=== PATIENT | female | born 1990 | race Caucasian/White ===

== ENCOUNTER 2016-09-25 09:29 | Inpatient (IN) | payer OTHER ==
[~2016-09-25] VITALS: Ht 149.9 cm; Wt 52.4 kg
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
[2016-09-25 09:36] VITALS: BP 117/73; PULSE 67; RESP 16; TEMP 97.8; O2SAT 98
[2016-09-25] MEDS ORDERED: CLON0.5T PO (09:40)
[2016-09-25 10:23] LABS: AMPHETAMINE, URINE NEG (NEG); BARBITURATES, URINE NEG (NEG); COCAINE, URINE NEG (NEG)
[2016-09-25 10:27] LABS: AUTOMATED NEUTROPHIL # 4.7 TH/MM3 (1.8-7.7); BASOPHIL % 0.4 % (0.0-2.0); EOSINOPHIL # 0.1 TH/MM3 (0-0.4); EOSINOPHIL % 1.5 % (0.0-4.0); HEMATOCRIT 34.1 % (35.0-46.0); HEMO FLAGS DIFF FINAL; LYMPH % 33.7 % (9.0-44.0); LYMPHOCYTE # 2.7 TH/MM3 (1.0-4.8); MEAN CELL VOLUME 81.7 FL (80.0-100.0); MEAN CORPUSCULAR HEMOGLOBIN 26.4 PG (27.0-34.0); MEAN CORPUSCULAR HGB CONC 32.4 % (32.0-36.0); MONO % 6.8 % (0.0-8.0); NEUT % 57.6 % (16.0-70.0); PLATELET COUNT 248 TH/MM3 (150-450); RED BLOOD COUNT 4.18 MIL/MM3 (4.00-5.30); RED CELL DISTRIBUTION WIDTH 13.8 % (11.6-17.2); WHITE BLOOD COUNT 8.1 TH/MM3 (4.0-11.0)
[2016-09-25 10:38] LABS: ALT (GPT) 20 U/L (10-53); ANION GAP 6 MEQ/L (5-15); AST (GOT) 15 U/L (15-37); BICARBONATE 27.2 MEQ/L (21.0-32.0); BLOOD UREA NITROGEN 13 MG/DL (7-18); CHLORIDE 107 MEQ/L (98-107); GLOMERULAR FILTRATION RATE 116 ML/MIN (>89); POTASSIUM 3.9 MEQ/L (3.5-5.1); SODIUM (NA) 140 MEQ/L (136-145)
[2016-09-25 10:40] LABS: ALKALINE PHOSPHATASE 69 U/L (45-117); TOTAL BILIRUBIN ADULT 0.5 MG/DL (0.2-1.0)
[2016-09-25 12:00] VITALS: BP 110/77; PULSE 76; RESP 17; TEMP 97.8; O2SAT 99
[2016-09-25 14:08] VITALS: BP 102/60; PULSE 61; RESP 18; O2SAT 100
--- NOTE | 2016-09-25 17:57 | PD ---
History of Present Illness Chief Complaint: Psychiatric Symptoms Time Seen by Provider: 17:15 Travel History International Travel<30 Days: No Contact w/Intl Traveler<30days: No Known affected area: No Legal Status Legal Status: Calzada Act Calzada Act Signed By: Von Calzada Act Comment: BA signed by: YAZAN STEEN Badge#[id number], Case#[id number] History of Present Illness: History of Present Illness HPI 26-year-old female with a reported history of PTSD and a chart history of adjustment disorder who came to the emergency room brought by the EMS after she was found unresponsive trying to choke herself with a rope . As per EMS report they had to forced entry into her room since the door was locked. She was initially unresponsive but with some sternal rub and untying the belt around her neck she started to breathe. Patient reports that she was involved in an argument with her and that after he left " my depression and anxiety just hit me". She denies that this was a planned suicide attempt but rather an impulsive action. The patient was seen in [facility] on August 26, 2016 also under a BA after she attempted to strangle herself. She was released after she was evaluated. That visit appears under " KASI" as her first name is misspelled. Seen in J pod. She is alert and oriented, calm and cooperative. Patient 's speech is clear and logical. She denies any hallucinations, no delusions and no paranoia. Mood is mildly depressed. Affect is variable. She reports that since her visit in August she has been in counseling and has begun medications prescribed by her PCP. She reports poor compliance with prescribed antidepressant ' I forget to take it for several days". Reports poor sleep, fair appetite and appropriate level of energy. Deneis use of substances although positive toxicology for cannabinoids. PFSH Past Medical History Anxiety: Yes Depression: Yes Psychiatric: Yes Tetanus Vaccination: > 5 Years Influenza Vaccination: No ?: Not LMP: 09/03/2016 : 3 Para: 3 Past Surgical History Surgical History: No Previous Surgery Psychiatric History Psychiatric History Hx Psychiatric Treatment: Pt was placed under a BA after a suicide attempt in August 2016 History of Inpatient Treatment: No Guns or firearms in home: No Social History . lives with and 2 children ages 2 years and 4 years. Currently on leave from work. Has worked as a unit aide x 2 years. Hx Alcohol Use: No (PT DENIES) Hx Tobacco Use: No (PT DENIES ) Hx Substance Use: No Substance Use Type: Marijuana Hx of Substance Use Treatment: No Family Psychiatric History Mother with possible depression. Allergies-Medications (Allergen,Severity, Reaction): Coded Allergies: Amoxicillin (Verified Allergy, Unknown, hives, 09/25/16) Erythromycin (Verified Allergy, Unknown, rash, 09/25/16) Penicillin (Verified Allergy, Unknown, hives, 09/25/16) Reported Meds & Prescriptions Reported Meds & Active Scripts Active Reported Clonazepam 0.5 Mg Tab 0.5 Mg PO BID Exam Alert: Yes [place]: Person (ox4) Mood: Calm Affect: Appropriate Speech: Clear, Logical Eye Contact: Normal Memory Intact: Comment (No impairmetn) Hallucinations: Other (negative) Delusions: No Suicidal: Ideation (deneis at present) Homicidal: Ideation (deneis at present) Insight/Judgement Poor. Not impaired MDM Medical Decision Making Medical Record Reviewed: Yes Assessment/Plan 26-year-old female with a reported history of PTSD and a chart history of adjustment disorder who came to the emergency room brought by the EMS after she was found unresponsive trying to choke herself with a rope . As per EMS report they had to forced entry into her room since the door was locked. She was initially unresponsive but with some sternal rub and untying the belt around her neck she started to breathe. This is the second reported she has made in the past month. She has been inconsistent with her treatment. At this time inpatient treatment is recommended for further evaluation, to maintain safety and to adjust current medications. Orders Complete Blood Count With Diff (09/25/16 09:36) Comprehensive Metabolic Panel (09/25/16 09:36) Ed Urine Pregnancytest Poc (09/25/16 09:36) Psych Screen (09/25/16 09:36) Drug Screen, Random Urine (09/25/16 09:36) Diet Regular Basic (09/25/16 Dinner) Results Vital Signs Date Time Temp Pulse Resp B/P Pulse Ox O2 Delivery O2 Flow Rate FiO2 09/25/16 14:08 61 18 102/60 100 Room Air 09/25/16 12:00 97.8 76 17 110/77 99 Room Air 09/25/16 09:38 67 16 09/25/16 09:36 97.8 67 16 117/73 98 Laboratory Tests Test 09/25/16 09/25/16 09:30 09:45 White Blood Count 8.1 Red Blood Count 4.18 Hemoglobin 11.0 Hematocrit 34.1 Mean Corpuscular Volume 81.7 Mean Corpuscular Hemoglobin 26.4 Mean Corpuscular Hemoglobin 32.4 Concent Red Cell Distribution Width 13.8 Platelet Count 248 Mean Platelet Volume 8.2 Neutrophils (%) (Auto) 57.6 Lymphocytes (%) (Auto) 33.7 Monocytes (%) (Auto) 6.8 Eosinophils (%) (Auto) 1.5 Basophils (%) (Auto) 0.4 Neutrophils # (Auto) 4.7 Lymphocytes # (Auto) 2.7 Monocytes # (Auto) 0.6 Eosinophils # (Auto) 0.1 Basophils # (Auto) 0.0 CBC Comment DIFF FINAL Differential Comment Sodium Level 140 Potassium Level 3.9 Chloride Level 107 Carbon Dioxide Level 27.2 Anion Gap 6 Blood Urea Nitrogen 13 Creatinine 0.62 Estimat Glomerular Filtration 116 Rate Random Glucose 100 Calcium Level 8.7 Total Bilirubin 0.5 Aspartate Amino Transf 15 (AST/SGOT) Alanine Aminotransferase 20 (ALT/SGPT) Alkaline Phosphatase 69 Total Protein 7.4 Albumin 3.7 Urine Opiates Screen NEG Urine Barbiturates Screen NEG Urine Amphetamines Screen NEG Urine Benzodiazepines Screen NEG Urine Cocaine Screen NEG Urine Cannabinoids Screen POS Diagnosis Primary Impression: Adjustment disorder Admitting Information Admitting Physician Requests: Admit Problem Qualifiers Primary Impression: Adjustment disorder Qualified Code: F43.21 - Adjustment disorder with depressed mood Bettina Mar Sep 25, 2016 17:57
[2016-09-25] MEDS ORDERED: MAGNESIUM HYDROXIDE SUSP 30 ML CUP PO PRN (18:00)
[2016-09-25] MEDS ORDERED: ACETAMINOPHEN 325 MG TAB PO PRN (18:00)
[2016-09-25] MEDS ORDERED: ALUMINUM/MAGNESIUM/SIMETH 30 ML CUP PO PRN (18:00)
[2016-09-25 18:27] VITALS: BP 102/60; PULSE 61; RESP 18; O2SAT 100
[2016-09-25 22:38] VITALS: BP 109/55; PULSE 76; RESP 18; TEMP 98; O2SAT 99
[2016-09-26 06:06] VITALS: BP 107/59; PULSE 110; RESP 18; TEMP 97.9; O2SAT 100
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
[2016-09-26 11:14] LABS: ANION GAP 9 MEQ/L (5-15); BICARBONATE 26.3 MEQ/L (21.0-32.0); BLOOD UREA NITROGEN 10 MG/DL (7-18); CHLORIDE 104 MEQ/L (98-107); GLOMERULAR FILTRATION RATE 103 ML/MIN (>89); POTASSIUM 4.3 MEQ/L (3.5-5.1); SODIUM (NA) 139 MEQ/L (136-145)
[2016-09-26 11:21] LABS: HDL CHOLESTEROL 49.3 MG/DL (40.0-60.0); LDL CHOLESTEROL 115 MG/DL (0-99)
[2016-09-26 11:46] LABS: HEMOGLOBIN A1a 1.5 %; HEMOGLOBIN A1b 1.6 %; HEMOGLOBIN Ao 84.8 %; HEMOGLOBIN P3 3.8 %
[2016-09-26] MEDS: clonazePAM 0.5 MG TAB PO SCH ×2 (13:33→21:04)
[2016-09-26 17:58] VITALS: BP 101/66; PULSE 82; RESP 17; TEMP 98.3; O2SAT 100
[2016-09-27 04:59] VITALS: BP 102/66; PULSE 86; RESP 16; TEMP 97.9; O2SAT 97
[2016-09-27] MEDS: clonazePAM 0.5 MG TAB PO SCH (08:26)
[2016-09-27 10:14] LABS: AUTOMATED NEUTROPHIL # 7.2 TH/MM3 (1.8-7.7); BASOPHIL % 0.3 % (0.0-2.0); EOSINOPHIL % 0.4 % (0.0-4.0); HEMATOCRIT 40.1 % (35.0-46.0); HEMO FLAGS DIFF FINAL; LYMPH % 28.7 % (9.0-44.0); LYMPHOCYTE # 3.2 TH/MM3 (1.0-4.8); MEAN CELL VOLUME 82.4 FL (80.0-100.0); MEAN CORPUSCULAR HEMOGLOBIN 26.3 PG (27.0-34.0); MEAN CORPUSCULAR HGB CONC 31.9 % (32.0-36.0); MONO % 5.4 % (0.0-8.0); NEUT % 65.2 % (16.0-70.0); PLATELET COUNT 297 TH/MM3 (150-450); RED BLOOD COUNT 4.87 MIL/MM3 (4.00-5.30); RED CELL DISTRIBUTION WIDTH 13.9 % (11.6-17.2)
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
== END 2016-09-27 14:26 | disposition home or self-care (01) | DRG 882 ==
LOC: NEPE 09:29 → NEDA 18:01 → H270 21:57 → H260 09-26 11:25
PROVIDERS: ADMIT Psychiatry & Neurology Psychiatry; ATTEND Psychiatry & Neurology Psychiatry
DX: F43.25 Adjustment disorder with mixed disturbance of emotions and conduct (principal); F43.10 Post-traumatic stress disorder, unspecified
CPT/HCPCS: 80048; 80053; 80061; 80307; 83036; 84703; 85025

== ENCOUNTER 2016-12-27 20:04 | Emergency (ER) | payer MEDICAID, OTHER ==
[~2016-12-27] VITALS: Ht 149.9 cm; Wt 55.0 kg
[~2016-12-27 20:04] MED LIST: CLON0.5T PO
[2016-12-27 20:13] VITALS: BP 120/75; PULSE 99; RESP 17; TEMP 98.3; O2SAT 100
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
[2016-12-27 20:47] LABS: AUTOMATED NEUTROPHIL # 11.4 TH/MM3 (1.8-7.7); BASOPHIL % 0.2 % (0.0-2.0); EOSINOPHIL # 0.1 TH/MM3 (0-0.4); EOSINOPHIL % 0.7 % (0.0-4.0); HEMATOCRIT 29.5 % (35.0-46.0); HEMO FLAGS DIFF FINAL; LYMPHOCYTE # 3.1 TH/MM3 (1.0-4.8); MEAN CELL VOLUME 82.4 FL (80.0-100.0); MEAN CORPUSCULAR HEMOGLOBIN 27.1 PG (27.0-34.0); MEAN CORPUSCULAR HGB CONC 32.9 % (32.0-36.0); MONO % 5.6 % (0.0-8.0); NEUT % 73.5 % (16.0-70.0); PLATELET COUNT 265 TH/MM3 (150-450); RED BLOOD COUNT 3.58 MIL/MM3 (4.00-5.30); RED CELL DISTRIBUTION WIDTH 13.2 % (11.6-17.2); WHITE BLOOD COUNT 15.5 TH/MM3 (4.0-11.0)
[2016-12-27 21:04] LABS: ANION GAP 7 MEQ/L (5-15); BICARBONATE 23.8 MEQ/L (21.0-32.0); BLOOD UREA NITROGEN 7 MG/DL (7-18); CHLORIDE 106 MEQ/L (98-107); GLOMERULAR FILTRATION RATE 199 ML/MIN (>89); POTASSIUM 3.7 MEQ/L (3.5-5.1); SODIUM (NA) 137 MEQ/L (136-145)
[2016-12-27 21:21] LABS: ACETAMINOPHEN LESS THAN 2.0 MCG/ML (10.0-30.0); BETA HCG QUANT 51379 MIU/ML (0-5)
[2016-12-27 21:28] LABS: ALCOHOL LESS THAN 3 MG/DL (0-5)
[2016-12-27 22:21] LABS: BACTERIA, URINE RARE /hpf; BLOOD, URINE NEG (NEG); COMMENT (UR) CULT NOT INDICATED; CULTURE IF INDICATED CULT NOT INDICATED; GLUCOSE,URINE NEG (NEG); KETONE, URINE NEG (NEG); MUCUS URINE FEW /lpf (OCC); NITRITE,URINE NEG (NEG); SQUAMOUS EPITHELIAL CELL URINE 4 /hpf (0-5); URINE COLOR YELLOW (YELLW/STRAW)
[2016-12-28 03:17] VITALS: BP 122/54; PULSE 92; RESP 18; TEMP 98.6; O2SAT 99
[2016-12-28 05:21] VITALS: BP 114/55; PULSE 101; RESP 16; O2SAT 99
[2016-12-28] MEDS ORDERED: ACETAMINOPHEN 325 MG TAB PO ONE (09:00)
[2016-12-28 12:02] VITALS: BP 100/57; PULSE 93; RESP 18; TEMP 98.6; O2SAT 98
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
--- NOTE | 2016-12-28 13:29 | PD ---
Physical Exam Time Seen by Provider: 13:[address] Ayala has evaluated the patient, lifted Calzada act and cleared the patient for discharge. Data Data Last Documented VS Vital Signs Date Time Temp Pulse Resp B/P (MAP) Pulse Ox O2 Delivery O2 Flow Rate FiO2 12/28/16 12:02 98.6 93 18 100/57 (71) 98 12/28/16 05:21 Room Air Orders Orders Complete Blood Count With Diff (12/27/16 20:15) Basic Metabolic Panel (Bmp) (12/27/16 20:15) Urinalysis - C+S If Indicated (12/27/16 20:15) Psych Screen (12/27/16 20:15) Drug Screen, Random Urine (12/27/16 20:15) Alcohol (Ethanol) (12/27/16 20:15) Salicylates (Aspirin) (12/27/16 20:15) Tylenol (Acetaminophen) (12/27/16 20:15) Beta Hcg (Quant/Titer) (12/27/16 20:15) Diet Regular Basic (12/28/16 Breakfast) Acetaminophen (Tylenol) (12/28/16 09:00) Diet Regular Basic (12/28/16 Lunch) Labs Laboratory Tests Test 12/27/16 20:20 12/27/16 21:55 White Blood Count 15.5 TH/MM3 Red Blood Count 3.58 MIL/MM3 Hemoglobin 9.7 GM/DL Hematocrit 29.5 % Mean Corpuscular Volume 82.4 FL Mean Corpuscular Hemoglobin 27.1 PG Mean Corpuscular Hemoglobin Concent 32.9 % Red Cell Distribution Width 13.2 % Platelet Count 265 TH/MM3 Mean Platelet Volume 8.1 FL Neutrophils (%) (Auto) 73.5 % Lymphocytes (%) (Auto) 20.0 % Monocytes (%) (Auto) 5.6 % Eosinophils (%) (Auto) 0.7 % Basophils (%) (Auto) 0.2 % Neutrophils # (Auto) 11.4 TH/MM3 Lymphocytes # (Auto) 3.1 TH/MM3 Monocytes # (Auto) 0.9 TH/MM3 Eosinophils # (Auto) 0.1 TH/MM3 Basophils # (Auto) 0.0 TH/MM3 CBC Comment DIFF FINAL Differential Comment Blood Urea Nitrogen 7 MG/DL Creatinine 0.39 MG/DL Random Glucose 102 MG/DL Calcium Level 8.5 MG/DL Sodium Level 137 MEQ/L Potassium Level 3.7 MEQ/L Chloride Level 106 MEQ/L Carbon Dioxide Level 23.8 MEQ/L Anion Gap 7 MEQ/L Estimat Glomerular Filtration Rate 199 ML/MIN Human Chorionic Gonadotropin, Quant 66042 MIU/ML Salicylates Level LESS THAN 1.7 MG/DL Acetaminophen Level LESS THAN 2.0 MCG/ML Ethyl Alcohol Level LESS THAN 3 MG/DL Urine Color YELLOW Urine Turbidity CLOUDY Urine pH 7.0 Urine Specific [place] 1.015 Urine Protein NEG mg/dL Urine Glucose (UA) NEG mg/dL Urine Ketones NEG mg/dL Urine Occult Blood NEG Urine Nitrite NEG Urine Bilirubin NEG Urine Urobilinogen LESS THAN 2.0 MG/DL Urine Leukocyte Esterase TRACE Urine WBC 1 /hpf Urine Squamous Epithelial Cells 4 /hpf Urine Amorphous Sediment OCC Urine Bacteria RARE /hpf Urine Mucus FEW /lpf Microscopic Urinalysis Comment CULT NOT INDICATED Urine Opiates Screen NEG Urine Barbiturates Screen NEG Urine Amphetamines Screen NEG Urine Benzodiazepines Screen NEG Urine Cocaine Screen NEG Urine Cannabinoids Screen POS MDM Supervised Visit with [facility]: No Narrative Course Dr. Ayala has evaluated the patient, lifted Zheng munoz and cleared the patient for discharge. Patient contracts safety. Denies suicidal or homicidal ideations. Patient will be provided community resource packet to [facility] for follow-up. Has friends and family for support. Patient is medically cleared for discharge. Diagnosis Primary Impression: Adjustment disorder with mixed disturbance of emotions and conduct Referrals: ARNIE (Out patient) [facility] [employer] Primary Care Physician Psychiatrist [facility] Patient Instructions: General Instructions, Mood Disorders (ED) Additional Instruction: Contract safety to your self and others Follow-up with psychiatry Follow-up with primary care provider Follow-up with Howie Castelan Follow-up with bracer Return to the emergency department immediately with worsening of symptoms Med/Other Pt SpecificInfo: No Meds Exist/No RX given Disposition: 01 DISCHARGE HOME Condition: Stable Linn Beck Dec 28, 2016 13:29
== END 2016-12-28 13:51 | disposition home or self-care (01) ==
LOC: NEPC 20:04 → NEPJ 12-28 13:51
DX: O99.89 Other specified diseases and conditions complicating pregnancy, childbirth and the puerperium (principal); F43.25 Adjustment disorder with mixed disturbance of emotions and conduct; Z72.0 Tobacco use; Z79.899 Other long term (current) drug therapy; Z86.59 Personal history of other mental and behavioral disorders; Z3A.16 16 weeks gestation of pregnancy
CPT/HCPCS: 80048; 80307; 81001; 84702; 85025; 99284